=== PATIENT | female | born 1940 | race Caucasian/White ===

== ENCOUNTER 2021-07-18 11:53 | Emergency (ER) | payer OTHER ==
[~2021-07-18] VITALS: Ht 152.4 cm; Wt 47.2 kg
--- NOTE | 2021-07-18 11:54 | NUR ---
BIBA TAKEN TO BED 3
[2021-07-18 11:57] VITALS: BP 122/53
--- NOTE | 2021-07-18 12:24 | NUR ---
80/F BIBA FROM HOME WITH C/O WITNESSED SYNCOPAL EPISODE TODAY. PER EMS PATIENT WAS ASSISTED TO GROUND, DENIES HEAD OR NECK INJURY. PATIENT DENIES PAIN, N/V/D, HEADACHE OR DIZZINESS. PATIENT STATES SHE RECEIVED HER SECOND COVID BOOSTER YESTERDAY AND REPORTS SOME TENDERNESS TO SITE OF INJECTION. PATIENT AOX4, ANSWERING QUESTIONS APPROPRIATELY IN FULL CLEAR SENTENCES.
--- NOTE | 2021-07-18 12:36 | NUR ---
LAB AT BEDSIDE FOR BLOOD DRAW
--- NOTE | 2021-07-18 12:44 | NUR ---
REPORTING PROCESS CONSULTANT AT BEDSIDE
[2021-07-18 13:10] LABS: BASOPHILS # (AUTO) 0.1 K/uL (0.00-0.22); BASOPHILS % (AUTO) 0.8 % (0.0-2.0); EOSINOPHILS % (AUTO) 0.2 % (0.0-4.0); HEMATOCRIT 40.1 % (36-48); HEMOGLOBIN 13.1 g/dL (12.0-16.0); LYMPHOCYTES # (AUTO) 0.5 K/uL (2.5-16.5); MEAN CORPUSCULAR HEMOGLOBIN 31 pg (27-31); MEAN CORPUSCULAR HGB CONC 33 g/dL (33-37); MEAN CORPUSCULAR VOLUME 94.6 fL (80-94); MONOCYTES # (AUTO) 0.5 K/uL (0.8-1.0); MONOCYTES % (AUTO) 6.6 % (1.7-9.3); NEUTROPHILS % (AUTO) 85.4 % (42.2-75.2); PLATELET COUNT (AUTO) 152 K/uL (140-450); RED BLOOD CELL COUNT(AUTO) 4.24 MIL/uL (4.20-5.40); RED CELL DISTRIBUTION WIDTH 14.3 % (11.6-13.7)
[2021-07-18 13:19] LABS: ALBUMIN 3.2 g/dL (3.4-5.0); ANION GAP 10.9 (8-16); ASPARTATE AMINOTRANSFERASE 13 U/L (15-37); CARBON DIOXIDE 26.1 mmol/L (21-32); CHLORIDE 106 mmol/L (98-107); CREATININE 0.9 mg/dL (0.6-1.3); GLUCOSE 117 mg/dL (74-106); SODIUM SERUM 139 mmol/L (136-145); TOTAL BILIRUBIN 0.3 mg/dL (0.0-1.0); UREA NITROGEN, BLOOD 14 mg/dL (7-18)
--- NOTE | 2021-07-18 14:22 | NUR ---
PATIENT ROAD TESTED, AMBULATORY WITHOUT ASSISTANCE, DENIES DIZZINESS OR PAIN AT THIS TIME. PROVIDED WITH WATER.
[2021-07-18 15:08] VITALS: BP 118/55
--- NOTE | 2021-07-18 15:09 | NUR ---
Patient discharged with v/s stable. Written and verbal after care instructions given and explained. Patient verbalized understanding. Ambulatory with steady gait. All questions addressed prior to discharge. Advised to follow up with PMD.
== END 2021-07-18 15:08 | disposition home or self-care (01) ==
LOC: MED 11:53
DX: R55 Syncope and collapse (principal); I48.91 Unspecified atrial fibrillation; Z88.0 Allergy status to penicillin
CPT/HCPCS: 36415; 71045; 80053; 84484; 85025; 93005; 99285; Q0092

== ENCOUNTER 2023-12-03 06:57 | Inpatient (IN) | payer MEDICARE, OTHER ==
[~2023-12-03] VITALS: Ht 152.4 cm; Wt 51.3 kg
[2023-12-03 07:11] VITALS: BP 101/54; PULSE 64; RESP 16; TEMP 98.1; O2SAT 97
[2023-12-03 07:52] LABS: BASOPHILS % (AUTO) 0.5 % (0.0-2.0); EOSINOPHILS % (AUTO) 0.6 % (0.0-4.0); HEMATOCRIT 38.7 % (36-48); HEMOGLOBIN 12.7 g/dL (12.0-16.0); LYMPHOCYTES # (AUTO) 1.2 K/uL (2.5-16.5); LYMPHOCYTES % (AUTO) 13.4 % (20.5-51.1); MEAN CORPUSCULAR HEMOGLOBIN 31 pg (27-31); MEAN CORPUSCULAR HGB CONC 33 g/dL (33-37); MEAN CORPUSCULAR VOLUME 94.7 fL (80-94); MONOCYTES # (AUTO) 0.6 K/uL (0.8-1.0); MONOCYTES % (AUTO) 6.6 % (1.7-9.3); NEUTROPHILS # (AUTO) 6.9 K/uL (1.8-7.7); NEUTROPHILS % (AUTO) 78.9 % (42.2-75.2); PLATELET COUNT (AUTO) 152 K/uL (140-450); RED BLOOD CELL COUNT(AUTO) 4.09 MIL/uL (4.20-5.40); RED CELL DISTRIBUTION WIDTH 14.6 % (11.6-13.7); WHITE BLOOD COUNT (AUTO) 8.7 K/uL (4.8-10.8)
[2023-12-03 08:02] LABS: ANION GAP 11.9 (8-16); CALCIUM 8.9 mg/dL (8.5-10.1); CARBON DIOXIDE 26.8 mmol/L (21-32); CHLORIDE 105 mmol/L (98-107); GLUCOSE 101 mg/dL (74-106); POTASSIUM 3.7 mmol/L (3.5-5.1); SODIUM SERUM 140 mmol/L (136-145); UREA NITROGEN, BLOOD 13 mg/dL (7-18)
[2023-12-03 09:53] LABS: APPEARANCE,URINE CLEAR (CLEAR); BILIRUBIN,URINE NEGATIVE (NEGATIVE); BLOOD, URINE NEGATIVE (NEGATIVE); COLOR,URINE YELLOW (YELLOW); LEUKOCYTE ESTERASE ,URINE 2+ (NEGATIVE); NITRITE, URINE NEGATIVE (NEGATIVE); PH,URINE 6.5 (5.0-9.0); PROTEIN,URINE NEGATIVE (NEGATIVE); UGLUCOSE NEGATIVE (NEGATIVE); UROBILINOGEN,URINE 0.2 EU/dL (0.2 - 1)
[2023-12-03 10:12] LABS: RBC,URINE 0-5 /HPF (0-5)
[2023-12-03 10:13] LABS: BACTERIA,URINE 10-30 (MOD) /HPF (None Seen); SQUAMOUS EPITHELIAL CELL,UR >10 (MANY) /LPF (0-3 (FEW)); WBC,URINE >25 (MANY) /HPF (0-5)
[2023-12-03] MEDS ORDERED: cefTRIAXone 1,000 MG VIAL ONE (11:51)
[2023-12-03] MEDS ORDERED: ONDANSETRON 4 MG/2 ML VIAL IVP PRN (13:35)
[2023-12-03] MEDS ORDERED: ACETAMINOPHEN 325 MG TAB PO PRN (13:35)
[2023-12-03] MEDS ORDERED: APIX5TAB PO (14:48)
[2023-12-03] MEDS ORDERED: OMEP40EC23 PO (14:48)
[2023-12-03] MEDS ORDERED: METO25TE2 PO (14:48)
[2023-12-03 15:44] VITALS: BP 113/62; PULSE 64; RESP 16; TEMP 96.8
[2023-12-03 15:47] VITALS: PULSE 64; RESP 16; O2SAT 95
[2023-12-03 16:00] VITALS: PULSE 61
[2023-12-03] MEDS: NACL 0.9% 1,000 ML IV SCH (16:00)
[2023-12-03 20:00] VITALS: BP 110/64; PULSE 54; PULSE 60; PULSE 78; RESP 18; TEMP 97.5; O2SAT 95
[2023-12-03 21:01] VITALS: O2SAT 95
[2023-12-04] VITALS: BP 124/72; PULSE 62; PULSE 93; RESP 18; TEMP 97.5
[2023-12-04 00:01] VITALS: O2SAT 96
[2023-12-04] MEDS: PANTOPRAZOLE 40 MG TABEC PO SCH (01:46)
[2023-12-04 04:00] VITALS: BP 139/77; PULSE 65; PULSE 78; RESP 18; TEMP 96.8; O2SAT 97
[2023-12-04 06:49] LABS: ANION GAP 11.1 (8-16); CALCIUM 8.5 mg/dL (8.5-10.1); CARBON DIOXIDE 25.7 mmol/L (21-32); CHLORIDE 108 mmol/L (98-107); GLUCOSE 91 mg/dL (74-106); POTASSIUM 3.8 mmol/L (3.5-5.1); SODIUM SERUM 141 mmol/L (136-145); UREA NITROGEN, BLOOD 14 mg/dL (7-18)
[2023-12-04 08:00] VITALS: BP 135/52; PULSE 6; PULSE 71; PULSE 86; RESP 18; TEMP 97.2; O2SAT 95
[2023-12-04 08:14] LABS: BASOPHILS % (AUTO) 0.6 % (0.0-2.0); EOSINOPHILS % (AUTO) 0.6 % (0.0-4.0); HEMATOCRIT 37.1 % (36-48); HEMOGLOBIN 12.4 g/dL (12.0-16.0); LYMPHOCYTES # (AUTO) 1.3 K/uL (2.5-16.5); LYMPHOCYTES % (AUTO) 19.7 % (20.5-51.1); MEAN CORPUSCULAR HEMOGLOBIN 32 pg (27-31); MEAN CORPUSCULAR HGB CONC 34 g/dL (33-37); MEAN CORPUSCULAR VOLUME 95.6 fL (80-94); MONOCYTES # (AUTO) 0.6 K/uL (0.8-1.0); MONOCYTES % (AUTO) 9.2 % (1.7-9.3); NEUTROPHILS # (AUTO) 4.5 K/uL (1.8-7.7); NEUTROPHILS % (AUTO) 69.9 % (42.2-75.2); PLATELET COUNT (AUTO) 137 K/uL (140-450); RED BLOOD CELL COUNT(AUTO) 3.88 MIL/uL (4.20-5.40); RED CELL DISTRIBUTION WIDTH 14.5 % (11.6-13.7); WHITE BLOOD COUNT (AUTO) 6.4 K/uL (4.8-10.8)
[2023-12-04 12:00] VITALS: BP 128/53; PULSE 64; PULSE 85; RESP 16; TEMP 96.4; O2SAT 97
[2023-12-04] MEDS ORDERED: LEVO-481 PO (12:33)
[2023-12-04 13:16] VITALS: BP 128/53; PULSE 64; RESP 16; TEMP 96.4
[2023-12-04] MEDS ORDERED: APIXABAN 2.5 MG TAB PO SCH (21:00)
[2023-12-05] MEDS ORDERED: METOPROLOL SUCCINATE 50 MG TABER PO SCH (09:00)
[2023-12-05] MEDS ORDERED: NON-FORMULARY ITEM (Omeprazole* (Prilosec*) 40 MG) PO SCH (09:00)
== END 2023-12-04 15:39 | disposition home or self-care (01) | DRG 690 ==
LOC: MED 06:57 → MTU 13:37
PROVIDERS: ADMIT Student in an Organized Health Care Education/Training Program; ATTEND Student in an Organized Health Care Education/Training Program
DX: N39.0 Urinary tract infection, site not specified (principal); I48.91 Unspecified atrial fibrillation; Z95.0 Presence of cardiac pacemaker; E86.0 Dehydration; Z79.01 Long term (current) use of anticoagulants; Z88.0 Allergy status to penicillin; Z79.899 Other long term (current) drug therapy
CPT/HCPCS: 36415; 80048; 81001; 83735; 83880; 84484; 85025; 87040; 87081; 87086; 93005; 96365; 99285; J0696; J7060